=== PATIENT | male | born 1945 | race Two or more races ===

== ENCOUNTER 2022-03-27 21:58 | Emergency (ER) | payer OTHER ==
[~2022-03-27] VITALS: Ht 167.6 cm; Wt 88.5 kg
[~2022-03-27 21:58] MED LIST: COUMADIN5 MG PO; ENALAPRIL MALEA10 MG NGT; METFORMIN HCL500 MG PO; SYNTHROID137 MCG PO; ZOCOR40 MG PO
== END 2022-03-28 12:03 | disposition home or self-care (01) ==
LOC: ER 21:58
DX: R05.8 Other specified cough (principal); E11.9 Type 2 diabetes mellitus without complications; Z79.84 Long term (current) use of oral hypoglycemic drugs; I10 Essential (primary) hypertension; Z20.822 Contact with and (suspected) exposure to COVID-19